=== PATIENT | female | born 1945 | race Caucasian/White ===

== ENCOUNTER 2016-11-17 05:55 | Day surgery (SDC) | payer MEDICARE, OTHER ==
[2016-11-12 17:06] VITALS: BMI 39.6
[2016-11-17] MEDS ORDERED: LIDOCAINE HCL 2% (20ML MULTI-DOSE VIAL) NR ONE (07:13)
[2016-11-17] MEDS ORDERED: GUM MASTIC/STORAX/MSAL/ALCOHOL 1 DRP DROPSBTL MC ONE (07:13)
[2016-11-17] MEDS ORDERED: MIDAZOLAM HCL 2 MG/2 ML SINGLE DOSE VIAL ONE (07:14)
[2016-11-17] MEDS ORDERED: PROPOFOL 20 ML ONE ×5 (07:15)
[2016-11-17 08:09] VITALS: TEMP 97.8
[2016-11-17] MEDS ORDERED: ONDANSETRON 4 MG/2 ML VIAL IVPUSH PRN (08:20)
[2016-11-17] MEDS ORDERED: LACTATED RINGERS SOLUTION 1,000 ML IV SCH (08:30)
[2016-11-17] MEDS ORDERED: ACETAMINOPHEN 325 MG TABLET (FP) PO PRN (08:38)
[2016-11-17 09:01] VITALS: BP 110/77; PULSE 64
--- NOTE | 2016-11-17 20:42 | OP ---
DATE OF OPERATION: 11/17/2016 PREOPERATIVE DIAGNOSIS: Right carpal tunnel syndrome. POSTOPERATIVE DIAGNOSIS: Right carpal tunnel syndrome. OPERATIVE PROCEDURE: Right carpal tunnel release. ANESTHESIA: Local with sedation. COMPLICATIONS: None. ESTIMATED BLOOD LOSS: Minimal. INDICATIONS FOR PROCEDURE: The patient is a 71-year-old female with the above finding, indicated for operative treatment. Risks, benefits, alternatives were discussed with patient at length. Proper informed consent was obtained. PROCEDURE: After proper identification of patient and correct operative site, patient brought to operating room, placed supine on the table, prominences well padded. Sedation was given by the anesthesiologist. Local anesthesia was given, 2% lidocaine. Right upper extremity was prepped and draped in usual sterile fashion. A well-padded tourniquet was placed over the sterile prep. Esmarch bandage used to exsanguinate right upper extremity, tourniquet was inflated to 250 mmHg. A longitudinal incision was made over the proximal aspect of the palm. Incision was taken sharply through the skin with blunt and sharp dissection through subcutaneous tissues. Palmar fascia was divided longitudinally. Transverse carpal ligament was divided longitudinally. The distal 4 cm of antebrachial fascia was divided longitudinally, thus providing complete release of the median nerve at the wrist. At all times, excellent visualization was achieved and loupe magnification was used. The wound was irrigated with copious amounts of normal saline, repaired with a 5-0 nylon suture. Sterile dressings were applied. Patient was reversed from sedation and brought to the recovery room in stable condition. She tolerated procedure well. David [id number]
== END 2016-11-17 09:25 | disposition home or self-care (01) ==
LOC: FASU 05:55
PROVIDERS: ATTEND Orthopaedic Surgery Hand Surgery
PROC: 01N50ZZ Release Median Nerve, Open Approach (ICD-10-PCS; principal; 2016-11-17 07:41)
DX: G56.01 Carpal tunnel syndrome, right upper limb (principal)